=== PATIENT | male | born 2000 | race Caucasian/White ===

== ENCOUNTER 2020-05-04 11:14 | Emergency (ER) | payer OTHER, SELFPAY ==
[2020-05-04 11:29] VITALS: BP 131/90; PULSE 55; RESP 16; TEMP 36.6; O2SAT 99
--- NOTE | 2020-05-04 11:35 | ED.SKABFB ---
HPI - Skin/Abscess/Foreign Bdy General Chief complaint: Skin/Abscess/Foreign Body Stated complaint: poison isabel Time Seen by Provider: 05/04/20 11:35 Source: patient Mode of arrival: ambulatory Limitations: no limitations History of Present Illness HPI narrative: uJwan Glover is a 19 yo male with no PMH who comes to express care with severe contact dermatitis, was clearing brush from aunts property on and Tuesday, started developing rash Tuesday, night and spread on face and periorbital edema Related Data Allergies Allergy/AdvReac Type Severity Reaction Status Date / Time No Known Allergies Allergy Unverified 07/12/12 14:05 Review of Systems Review of Systems: Narrative: CONSTITUTIONAL: Denies fever, chills, sweats. EYES: Denies visual changes, redness, discharge. ENT: Denies rhinorrhea, congestion, sore throat, otalgia. CARDIOVASCULAR: Denies chest pain, palpitations, edema. RESPIRATORY: Denies dyspnea, wheezing, cough GASTROINTESTINAL: Denies abdominal pain, nausea, vomiting, diarrhea. GENITOURINARY: Denies dysuria, hematuria, abnormal discharge SKIN: Denies rash or itching. Contact dermatitis on arms legs chest face around eyes; NEUROLOGIC: Denies numbness, or focal weakness. PSYCHIATRIC: Denies anxiety or depression. [facility] Family History Family History Other No active medical problems Social History Social History (Updated 05/04/20 @ 11:45 by Ale Brian CNP) Smoking status: Current some day smoker Tobacco type: e-cigarettes/vaping Alcohol intake: current Comments At time of signature, I agree with nursing past medical, surgical, social and family history. There is no relevant family history pertinent to the presenting complaint. Exam Narrative: Exam Narrative: GENERAL: This is a well-nourished, well-developed patient, in mild distress. HEAD: normocephalic, atraumatic. EYES: Sclera clear/white. Vision is grossly intact. EARS: External ears normal, . Hearing grossly intact. NOSE: External nose normal without nasal discharge, nares without redness, no rhinorrhea. THROAT: Mucous membranes moist, posterior pharynx no lesions inside mouth NECK: Neck supple, non-tender CARDIOVASCULAR: Regular rate and rhythm without murmurs, gallops, or rubs. RESPIRATORY: Clear to auscultation. Breath sounds equal bilaterally. No wheezes, rales, or rhonchi. GASTROINTESTINAL: Abdomen soft, non-tender, SKIN: warm, intact with no suspicious lesions or rash, good texture and turgor. Papular raised and vesicular rash on bilateral legs arms chest face periorbital edema, no tenderness NEURO: awake, alert, and oriented to person, place and time. There were no obvious focal neurologic abnormalities. Steady gait EXTREMITIES: Normal range of motion. BACK: Nontender without deformity Course Course Emergency Course: Given Solu-Medrol 125 IM now, patient had taken Benadryl at home Started on prednisone, Benadryl, and Pepcid-discussed TaperPak and use of other medications in the next few days. Also washing all close shoes and tools that were used in hot soapy water Vital Signs Vital signs: Vital Signs Temperature 97.8 F 05/04/20 11:29 Pulse Rate 55 L 05/04/20 11:29 Respiratory Rate 16 05/04/20 11:29 Blood Pressure 131/90 05/04/20 11:29 Pulse Oximetry 99 05/04/20 11:29 Temperature 97.8 F 05/04/20 11:29 Pulse Rate 55 L 05/04/20 11:29 Respiratory Rate 16 05/04/20 11:29 Blood Pressure 131/90 05/04/20 11:29 Pulse Oximetry 99 05/04/20 11:29 MDM - Skin/Abscess/Foreign Bdy Differential Diagnosis Differential diagnosis: Likely herpes zoster, cellulitis, insect bites, contact dermatitis and other Discharge Plan Discharge Clinical Impression: Contact dermatitis Qualifiers: Contact dermatitis type: allergic Contact dermatitis trigger: non-food plants Qualified Code(s): L23.7 - Allergic contact dermatitis due to plants, exc
[2020-05-04] MEDS: methylPREDNISolone SOD SUCC 125 MG VIAL IM (11:44)
== END 2020-05-04 12:06 | disposition home or self-care (01) ==
PROVIDERS: Emergency Provider Nurse Practitioner
DX: L23.7 Allergic contact dermatitis due to plants, except food (principal); F17.200 Nicotine dependence, unspecified, uncomplicated
CPT/HCPCS: 96372; 99213; G0463; J2930